=== PATIENT | male | born 1995 | race Caucasian/White ===

== ENCOUNTER 2016-09-28 20:19 | Emergency (ER) | payer BC ==
[~2016-09-28] VITALS: Ht 180.3 cm; Wt 113.5 kg
[2016-09-28] MEDS ORDERED: SODIUM CHLORIDE 0.9% 1000ML 1,000 ML IV STA (20:29)
[2016-09-28 20:37] VITALS: Ht 180.3 cm; Wt 113.5 kg
[2016-09-28 20:38] VITALS: O2SAT 98
[2016-09-28 20:55] LABS: BASO % 0.1 %; BASO ABS # 0.01 K/uL (0-0.2); COMPLETE YES; EOS % 0.2 %; HEMATOCRIT 44.1 % (42-52); IG% 0.1 %; LYMPH % 10.1 %; LYMPH ABS # 1.14 K/uL (1.2-3.4); MEAN CELL VOLUME 89.5 fL (80-100); MEAN CORPUSCULAR HEMOGLOBIN 32.9 pg (25-34); MEAN CORPUSCULAR HGB CONC 36.7 g/dl (32-36); MEAN PLATELET VOLUME 11.9 fL (7.4-10.4); MONO % 9.5 %; PLATELET COUNT 274 K/uL (130-400); RED BLOOD COUNT 4.93 M/uL (4.7-6.1); WHITE BLOOD COUNT 11.33 K/uL (4.8-10.8)
[2016-09-28] MEDS ORDERED: LORAZEPAM 1 MG TAB SL STA (20:55)
--- NOTE | 2016-09-28 20:55 | DIAGNOSTIC IMAGING REPORT ---
CHEST ONE VIEW PORTABLE HISTORY: EVALUATE WEAKNESS COMPARISON: None. FINDINGS: No pleural effusions. No pneumothorax. There are low lung volumes. Cardiac silhouette is borderline enlarged. The lungs are clear. IMPRESSION: Borderline enlargement of cardiac silhouette. This could be accentuated by the AP portable technique and low lung volumes. Electronically signed by: Dennys Blanc M.D. 09/28/2016 8:53 PM Dictated Date/Time: 09/28/2016 8:52 PM
[2016-09-28 21:05] LABS: INR 1.2 (0.9-1.1); PROTHROMBIN TIME (PATIENT) 12.4 SECONDS (9.0-12.0)
[2016-09-28 21:10] LABS: ALT/SGPT 27 U/L (12-78); BLOOD UREA NITROGEN 8 mg/dl (7-18); BUN/CREATININE RATIO 7.3 (10-20); CALCIUM 9.7 mg/dl (8.5-10.1); CARBON DIOXIDE 23 mmol/L (21-32); CHLORIDE 104 mmol/L (98-107); GLUCOSE 98 mg/dl (70-99); MAGNESIUM 2.4 mg/dl (1.8-2.4); POTASSIUM 3.2 mmol/L (3.5-5.1); SODIUM 139 mmol/L (136-145)
[2016-09-28 21:21] LABS: ALKALINE PHOSPHATASE 104 U/L (45-117); AST/SGOT 14 U/L (15-37); THYROID STIMULATING HORMONE 0.396 uIu/ml (0.300-4.500)
[2016-09-28 22:06] LABS: LYME DISEASE AB IGG NEG (NEG); LYME DISEASE AB IGM NEG (NEG)
[2016-09-28 22:52] LABS: URINE APPEARANCE CLEAR (CLEAR); URINE BILIRUBIN NEG (NEG); URINE COLOR YELLOW; URINE NITRITE NEG (NEG); URINE PH 5.5 (4.5-7.5); URINE SPECIFIC GRAVITY 1.001 (1.000-1.030); UROBILINOGEN NEG (NEG)
[2016-09-28 23:04] LABS: MANUAL MICROSCOPIC REQUIRED? NO; REVIEW REQ? NO
[2016-09-28] MEDS ORDERED: POTASSIUM CHLORIDE 10 MEQ TABCR PO STA (23:30)
[2016-09-28 23:46] VITALS: BP 156/80; PULSE 100; TEMP 36.9; O2SAT 98
--- NOTE | 2016-09-29 00:44 | EMERGENCY ROOM VISIT NOTE ---
History Report prepared by Stacey: David Mathias Under the Supervision of: Dr. Jorge James M.D. First contact with patient: 20:29 Chief Complaint: REFERRED BY DOCTOR Stated Complaint: REFERRED BY DOCTOR History of Present Illness The patient is a 21 year old male who presents to the Emergency Room with complaints of intermittent heart palpitations starting about a week and a half ago. He has noted his heart rate to be in the 110s-120s. He currently denies any pain. He was referred to the Emergency Room by [facility]. He does not have any history of similar symptoms. He denies any history of anxiety. He has a family history of hypertension. Pt denies recent travels, LOC, headache, fevers , chills, diaphoresis, visual changes, neck pain, chest pain, breathing difficulties, nausea, vomiting, abdominal pain, back pain, melena, hematochezia , urinary symptoms, numbness, weakness, lymphadenopathy, rash, or other complaints. He does not have any medical problems. Source of History: patient Onset: about a week and a half ago Position: chest Symptom Intensity: No pain currently Quality: other (heart palpitations) Timing: intermittent Review of Systems See HPI for pertinent positives and negatives. A total of ten systems were reviewed and were otherwise negative. Past Medical & Surgical Medical Problems: (1) No known problems Family History Hypertension Social History Smoking Status: Never Smoker Marital Status: single Occupation Status: [employer] student Current/Historical Medications No Active Prescriptions or Reported Meds Allergies Coded Allergies: No Known Allergies (Unverified , 09/28/16) Physical Exam Vital Signs Date Time Temp Pulse Resp B/P Pulse Ox O2 Delivery O2 Flow Rate FiO2 09/28/16 23:46 36.9 100 18 156/80 98 09/28/16 23:41 100 18 156/80 98 Room Air 09/28/16 22:39 102 18 142/80 99 Room Air 09/28/16 22:03 103 09/28/16 21:37 97 18 149/79 98 Room Air 09/28/16 20:38 98 Room Air 09/28/16 20:25 36.9 113 18 120/78 99 Room Air Physical Exam GENERAL: Awake, alert, anxious-appearing, in no distress HENT: Normocephalic, atraumatic. Oropharynx unremarkable. EYES: Normal conjunctiva. Sclera non-icteric. NECK: Supple. No nuchal rigidity. FROM. No JVD. RESPIRATORY: Clear to auscultation. CARDIAC: Tachycardic rate, normal rhythm. Extremities warm and well perfused. Pulses equal. ABDOMEN: Soft, non-distended. No tenderness to palpation. No rebound or guarding. No masses. RECTAL: Deferred. MUSCULOSKELETAL: Chest examination reveals no tenderness. The back is symmetrical on inspection without obvious abnormality. There is no CVA tenderness to palpation. No joint edema. LOWER EXTREMITIES: Calves are equal size bilaterally and non-tender. No edema. No discoloration. NEURO: Normal sensorium. No sensory or motor deficits noted. SKIN: No rash or jaundice noted. Medical Decision & Procedures ER Provider Diagnostic Interpretation: X-ray: Per my interpretation, radiologist review. CHEST ONE VIEW PORTABLE HISTORY: EVALUATE WEAKNESS COMPARISON: None. FINDINGS: No pleural effusions. No pneumothorax. There are low lung volumes. Cardiac silhouette is borderline enlarged. The lungs are clear. IMPRESSION: Borderline enlargement of cardiac silhouette. This could be accentuated by the AP portable technique and low lung volumes. Electronically signed by: Dennys Blanc M.D. 09/28/2016 8:53 PM Dictated Date/Time: 09/28/2016 8:52 PM Laboratory Results 09/28/16 20:40 Red Blood Count 4.93, Mean Corpuscular Volume 89.5, Mean Corpuscular Hemoglobin 32.9, Mean Corpuscular Hemoglobin Concent 36.7, Mean Platelet Volume 11.9, Neutrophils (%) (Auto) 80.0, Lymphocytes (%) (Auto) 10.1, Monocytes (%) (Auto) 9.5, Eosinophils (%) (Auto) 0.2, Basophils (%) (Auto) 0.1, Neutrophils # (Auto) 9.07, Lymphocytes # (Auto) 1.14, Monocytes # (Auto) 1.08, Eosinophils # (Auto) 0.02, Basophils # (Auto) 0.01 09/28/16 20:40 Test 09/28/16 20:40 09/28/16 22:37 White Blood Count 11.33 K/uL (4.8-10.8) Red Blood Count 4.93 M/uL (4.7-6.1) Hemoglobin 16.2 g/dL (14.0-18.0) Hematocrit 44.1 % (42-52) Mean Corpuscular Volume 89.5 fL (80-100) Mean Corpuscular Hemoglobin 32.9 pg (25-34) Mean Corpuscular Hemoglobin Concent 36.7 g/dl (32-36) Platelet Count 274 K/uL (130-400) Mean Platelet Volume 11.9 fL (7.4-10.4) Neutrophils (%) (Auto) 80.0 % Lymphocytes (%) (Auto) 10.1 % Monocytes (%) (Auto) 9.5 % Eosinophils (%) (Auto) 0.2 % Basophils (%) (Auto) 0.1 % Neutrophils # (Auto) 9.07 K/uL (1.4-6.5) Lymphocytes # (Auto) 1.14 K/uL (1.2-3.4) Monocytes # (Auto) 1.08 K/uL (0.11-0.59) Eosinophils # (Auto) 0.02 K/uL (0-0.5) Basophils # (Auto) 0.01 K/uL (0-0.2) RDW Standard Deviation 40.0 fL (36.4-46.3) RDW Coefficient of Variation 12.3 % (11.5-14.5) Immature Granulocyte % (Auto) 0.1 % Immature Granulocyte # (Auto) 0.01 K/uL (0.00-0.02) Prothrombin Time 12.4 SECONDS (9.0-12.0) Prothromb Time International Ratio 1.2 (0.9-1.1) Activated Partial Thromboplast Time 27.2 SECONDS (21.0-31.0) Partial Thromboplastin Ratio 1.0 Anion Gap 12.0 mmol/L (3-11) Est Creatinine Clear Calc Drug Dose 133.8 ml/min Estimated GFR () 109.1 Estimated GFR (Non- 94.1 BUN/Creatinine Ratio 7.3 (10-20) Calcium Level 9.7 mg/dl (8.5-10.1) Magnesium Level 2.4 mg/dl (1.8-2.4) Total Bilirubin 0.3 mg/dl (0.2-1) Direct Bilirubin < 0.1 mg/dl (0-0.2) Aspartate Amino Transf (AST/SGOT) 14 U/L (15-37) Alanine Aminotransferase (ALT/SGPT) 27 U/L (12-78) Alkaline Phosphatase 104 U/L (45-117) Total Creatine Kinase 101 U/L (39-308) Creatine Kinase MB < 0.5 ng/ml (0.5-3.6) Creatine Kinase MB Ratio (0-3.0) Troponin I < 0.015 ng/ml (0-0.045) Total Protein 8.5 gm/dl (6.4-8.2) Albumin 4.7 gm/dl (3.4-5.0) Thyroid Stimulating Hormone (TSH) 0.396 uIu/ml (0.300-4.500) Lyme Disease IgG Antibody NEG (NEG) Lyme Disease IgM Antibody NEG (NEG) Urine Color YELLOW Urine Appearance CLEAR (CLEAR) Urine pH 5.5 (4.5-7.5) Urine Specific Clyo 1.001 (1.000-1.030) Urine Protein NEG (NEG) Urine Glucose (UA) NEG (NEG) Urine Ketones 2+ (NEG) Urine Occult Blood NEG (NEG) Urine Nitrite NEG (NEG) Urine Bilirubin NEG (NEG) Urine Urobilinogen NEG (NEG) Urine Leukocyte Esterase NEG (NEG) Laboratory results reviewed by me Medications Administered Medications (Trade) Dose Ordered Sig/Cisco Route Start Time Stop Time Status Last Admin Dose Admin Sodium Chloride (Nss 1000ml) 1,000 ml @ 125 mls/hr Q8H STAT IV 09/28/16 20:29 09/29/16 04:28 09/28/16 20:29 125 MLS/HR Lorazepam (Ativan Tab) 1 mg NOW STAT SL 09/28/16 20:55 09/28/16 20:56 DC 09/28/16 20:55 1 MG Potassium Chloride (Klor-Con M10) 20 meq NOW STAT PO 09/28/16 23:30 09/28/16 23:31 DC 09/28/16 23:38 20 MEQ ECG Indication: palpitations Rate (beats per minute): 107 Rhythm: sinus tachycardia Findings: no acute ischemic change, no ectopy, other (Possible left atrial enlargement) Change: Prehospital EKG showed normal sinus rhythm, 80 beats per minute, no acute ischemic changes, no ectopy. ED Course 2028: The patient was evaluated in room A02. A complete history and physical exam was performed.Sodium Chloride 1000 ml @ 125 mls/hr IV 2054: Ativan Tab 1 mg SL 5: I reevaluated the patient who is feeling better. Discussed results and discharge instructions: He verbalized understanding and agreement. He had borderline elevated blood pressure and he will follow up with cardiology. The patient is ready for discharge. 2330: Potassium Chloride 20 meq PO Medical Decision Prior records/ancillary studies reviewed. Triage Nursing notes reviewed and agree them. The patient's history was concerning for palpitations and hypertension. Differential diagnosis: Etiologies such as electrolyte abnormality, cardiac dysrhythmia, thyroid dysfunction, pulmonary embolism, infection, gastrointestinal, hypertensive emergency, hypertension, as well as others were entertained. Physical examination: Benign as above. The patient is borderline tachycardic. He had borderline elevation of his blood pressure. He was anxious. ER treatment provided: Cardiac monitoring. Oral Ativan Normal saline hydration On reassessment the patient felt much better. Diagnostic interpretation by me: The electrocardiogram was negative for pathologic change. The labs revealed a subtle leukocytosis. Chemistry panel unremarkable except for mild hypokalemia. Magnesium normal. Cardiac markers normal. D-dimer negative. Imaging studies: Chest x-ray as above. Clinically the patient is doing very well. He has some borderline tachycardia which has improved as his anxiousness has decreased. The patient has had cold symptoms for a few days but the palpitations started for a week prior to that. He has a very slight elevation of his total white blood cell count, however I find no evidence of infection otherwise. I discussed conservative management. The patient will rest. He will not overexert himself. He will follow up with cardiology. He will call the office tomorrow.I gave my usual and customary discussion regarding this issue. His blood pressure is improved without intervention although it is still borderline. By the evaluation outlined above emergent etiologies such as significant electrolyte abnormality, cardiac dysrhythmia, thyroid dysfunction, pulmonary embolism, infection, as well as others were deemed relatively unlikely. The patient was informed about the findings as listed above. All questions were answered and he was pleased with the treatment. Return instructions were outlined and the patient was discharged in stable condition. Outpatient prescription management: None Referral: The patient was referred cardiology for a recheck of the current condition. The chart was completed utilizing [employer] voice recognition software. Grammatical errors, random word insertions, pronoun errors, and incomplete sentences are an occasional consequence of this system due to software limitations, ambient noise, and hardware issues. Any formal questions or concerns about the content, text, or information contained within the body of this dictation should be directly addressed to the physician for clarification. Impression Primary Impression: Palpitations Additional Impressions: HTN (hypertension) Hypokalemia Scribe Attestation The scribe's documentation has been prepared under my direction and personally reviewed by me in its entirety. I confirm that the note above accurately reflects all work, treatment, procedures, and medical decision making performed by me. Departure Information Dispostion Home / Self-Care Prescriptions No Active Prescriptions or Reported Meds Referrals Gordo Stephenson MD Forms HOME CARE DOCUMENTATION FORM, IMPORTANT VISIT INFORMATION, WORK / SCHOOL INSTRUCTIONS Patient Instructions My [facility] Additional Instructions PALPITATIONS(RAPID OR SKIPPING HEARTBEAT) INSTRUCTIONS: Rest and drink plenty of fluids as tolerated. Continue current medications. Resume normal activities once your symptoms resolve. Eat a heart healthy, low fat, low cholesterol diet. Return to the ER immediately for passing out, chest pain, abdominal pain, vomiting, fevers, difficulty breathing, worsening of your condition, or as needed. Follow up with cardiology as discussed for a recheck of your current condition. Call the clinic tomorrow morning. The number is listed below under Dr. Stephenson. Problem Qualifiers
== END 2016-09-28 23:46 | disposition home or self-care (01) ==
LOC: C.EDB 20:21 → C.EDA 23:46
DX: R00.2 Palpitations (principal); I10 Essential (primary) hypertension; E87.6 Hypokalemia; Z82.49 Family history of ischemic heart disease and other diseases of the circulatory system

== ENCOUNTER 2017-05-12 04:49 | Emergency (ER) | payer BC ==
[~2017-05-12] VITALS: Ht 177.8 cm; Wt 97.8 kg
[2017-05-12 04:52] VITALS: TEMP 36.4; Ht 177.8 cm; Wt 97.8 kg
[2017-05-12] MEDS ORDERED: RANITIDINE HCL 50 MG/100 ML D5W IV STA (04:59)
[2017-05-12] MEDS ORDERED: DEXAMETHASONE SOD INJ 10 MG/ML VIAL IV ONE (05:00)
--- NOTE | 2017-05-12 05:05 | EMERGENCY ROOM VISIT NOTE ---
History First contact with patient: 04:55 Chief Complaint: ALLERGIC REACTION Stated Complaint: ALLERGIC REACTION History of Present Illness The patient is a 22 year old male who presents to the Emergency Room with complaints of a itchy rash for the past several hours that is spreading and changing locations. No new foods soaps or detergents. Patient denies chest pain, dyspnea, throat tightness, facial swelling, feeling of impending doom. Review of Systems See HPI for pertinent positives & negatives. A total of 10 systems reviewed and were otherwise negative. Past Medical/Surgical History Medical Problems: (1) No known problems Family History Hypertension Social History Smoking Status: Never Smoker Drug Use: none Marital Status: single Occupation Status: [employer] student Current/Historical Medications No Active Prescriptions or Reported Meds Physical Exam Vital Signs Date Time Temp Pulse Resp B/P (MAP) Pulse Ox O2 Delivery O2 Flow Rate FiO2 05/12/17 04:52 36.4 86 18 184/106 97 Room Air Physical Exam VITALS: Vitals are noted on the nurse's note and reviewed by myself. Vital signs stable. GENERAL: Pleasant male, in no acute distress, nondiaphoretic, well-developed well-nourished. SKIN: Capillary reflex less than 2 seconds. Diffuse erythematous blanchable dermatitis of this changing locations throughout the body most consistent with hives HEENT: Normocephalic. PERRLA. EOMI. Nares patent. Mucous membranes moist. Neck is supple without nuchal rigidity. HEART: Regular rate and rhythm without murmurs gallops or rubs. LUNGS: Clear to auscultation bilaterally without wheezes, rales or rhonchi. No retractions or accessory muscle use. ABDOMEN: Positive bowel sounds x 4. Normal tympanic percussion. Soft, nontender, without masses or organomegaly. Street sign negative. No guarding or rebound tenderness. MUSCULOSKELETAL: No gross musculoskeletal defects. No pedal edema. NEURO: Patient was alert and oriented to person place and time. Normal sensation to light and sharp touch. no focal neurological deficits. Medical Decision & Procedures ED Course Prior records/ancillary studies reviewed. Triage Nursing notes reviewed. The patient's history was concerning for possible allergic reaction. Differential diagnosis: Etiologies such as allergic reaction, anaphylaxis, urticaria, Fields-Roverto syndrome, toxic epidermal necrolysis, erythema multiforme, cellulitis, as well as others were entertained. Physical examination: As above. ER treatment provided: Continuous cardiac monitoring Zantac 50 mg IV Decadron 10 mg IV On reassessment the patient felt better. Diagnostic interpretation by me: Deferred It appears the patient had an allergic reaction. The above treatment did well to reverse the symptoms. After prolonged monitoring and frequent reassessments the patient did very well and symptoms resolved. The patient was counseled on the spectrum of this disease process and told to avoid potential triggers. I gave my usual and customary discussion regarding this issue. By the evaluation outlined above emergent etiologies such as recurring anaphylaxis, anaphylatic shock, airway compromise, Fields-Roverto syndrome, toxic epidermal necrolysis, erythema multiforme, infectious etiologies, as well as others were deemed relatively unlikely. The pt informed about the findings as listed above. All questions were answered and pleased with the treatment. Return instructions were outlined and the patient was discharged in stable condition. Outpatient prescription management: EpiPen prednisone Referral: The patient was referred back to [facility] /primary care physician for follow-up in 2-3 days for a recheck of the current condition. or The patient was referred to Allergy/Immunology for further evaluation. Medical Decision As above Medication Reconcilliation Current Medication List: was personally reviewed by me Blood Pressure Screening Patient's blood pressure: Elevated blood pressure Blood pressure disposition: Elevated BP felt to be situational Impression Primary Impression: Urticaria Departure Information Dispostion Home / Self-Care Condition GOOD Prescriptions No Active Prescriptions or Reported Meds Referrals No Doctor, Assigned (PCP) Patient Instructions My [facility] Additional Instructions Epi-Pen: Use one injection as instructed for severe allergic reactions associated with shortness of breath, difficulty breathing, or throat or tongue swelling. If you use this injection call 911 or proceed immediately to the nearest Emergency Room. Prednisone 50mg: Once daily until the prescription is finished. It is best to take this earlier in the day as some patients note occasional difficulty falling asleep when taken in the late evening. Diphenhydramine(Benadryl) 25mg: use 25 to 50 mg every six hours for swelling, itching, or hives. This medication is sedating and will cause drowsiness. Avoid alcohol, operating machinery or dangerous equipment, working on ladders or roofs, DRIVING, or situations where being under the influence may be dangerous. Zantac 75: Take two pills twice a day along with Benadryl as needed for swelling , itching, or hives. Most people know this for its affect on the stomach, but it also acts similar to, but less potent than Benadryl for allergic reactions. Both the Benadryl and the Zantac are available [id number]. Continue current medications. Return to the emergency department for worsening of your rash, swelling of your face, lips, tongue, or throat, difficulty breathing, vomiting, or as needed. Follow-up with your primary care physician/health services in 2 to 3 days for a recheck of your current condition.
[2017-05-12] MEDS ORDERED: PRED50TA PO (05:07)
[2017-05-12] MEDS ORDERED: EPP3/2 IM (05:07)
[2017-05-12 05:24] VITALS: O2SAT 98
[2017-05-12 05:56] VITALS: BP 151/89; PULSE 68; O2SAT 97
[2017-05-12] MEDS ORDERED: BENADRYL HOME PACK 25 MG TAB PO ONE (06:15)
== END 2017-05-12 06:28 | disposition home or self-care (01) ==
LOC: C.EDB 04:49 → C.EDA 06:28
DX: L50.0 Allergic urticaria (principal); Z82.49 Family history of ischemic heart disease and other diseases of the circulatory system

== ENCOUNTER 2017-08-16 11:43 | Emergency (ER) | payer BC ==
[~2017-08-16] VITALS: Ht 180.3 cm; Wt 101.0 kg
[~2017-08-16 11:43] MED LIST: EPP3/2 IM
[2017-08-16 11:46] VITALS: Ht 180.3 cm; Wt 101.0 kg
[2017-08-16] MEDS ORDERED: ONDANSETRON INJ 2 MG/ML 2 ML VIAL IV STA (11:58)
[2017-08-16] MEDS ORDERED: SODIUM CHLORIDE 0.9% 1000ML 1,000 ML IV STA (11:58)
--- NOTE | 2017-08-16 12:32 | DIAGNOSTIC IMAGING REPORT ---
CHEST ONE VIEW PORTABLE HISTORY: 22 years-old Male Chest Pain acute atypical chest pain COMPARISON: Chest radiograph 09/28/2016 TECHNIQUE: Portable AP view of the chest FINDINGS: Cardiomediastinal and hilar silhouettes are within normal limits. No pneumothorax, pleural effusion, focal airspace consolidation or overt pulmonary edema. Bones of the chest are grossly intact. IMPRESSION: No acute cardiopulmonary process. The above report was generated using voice recognition software. It may contain grammatical, syntax or spelling errors. Electronically signed by: Erick Rodriguez M.D. 08/16/2017 12:31 PM Dictated Date/Time: 08/16/2017 12:30 PM
[2017-08-16 12:34] LABS: BASO % 0.2 %; BASO ABS # 0.01 K/uL (0-0.2); COMPLETE YES; EOS % 0.5 %; HEMATOCRIT 45.1 % (42-52); LYMPH % 21.7 %; LYMPH ABS # 1.44 K/uL (1.2-3.4); MEAN CELL VOLUME 91.3 fL (80-100); MEAN CORPUSCULAR HEMOGLOBIN 32.4 pg (25-34); MEAN CORPUSCULAR HGB CONC 35.5 g/dl (32-36); MEAN PLATELET VOLUME 12.3 fL (7.4-10.4); MONO % 6.5 %; NEUT % 71.1 %; PLATELET COUNT 273 K/uL (130-400); RED BLOOD COUNT 4.94 M/uL (4.7-6.1); WHITE BLOOD COUNT 6.65 K/uL (4.8-10.8)
[2017-08-16 12:43] LABS: BLOOD UREA NITROGEN 9 mg/dl (7-18); BUN/CREATININE RATIO 8.4 (10-20); CALCIUM 9.4 mg/dl (8.5-10.1); CARBON DIOXIDE 26 mmol/L (21-32); CHLORIDE 105 mmol/L (98-107); GLUCOSE 103 mg/dl (70-99); POTASSIUM 3.3 mmol/L (3.5-5.1); SODIUM 137 mmol/L (136-145)
[2017-08-16 12:54] LABS: THYROID STIMULATING HORMONE 0.717 uIu/ml (0.300-4.500)
[2017-08-16] MEDS ORDERED: POTASSIUM CHLORIDE 10 MEQ TABCR PO STA (13:36)
[2017-08-16 14:26] VITALS: BP 175/94; PULSE 88; TEMP 36.5; O2SAT 99
--- NOTE | 2017-08-16 17:00 | EMERGENCY ROOM VISIT NOTE ---
History Report prepared by Stacey: James Mantilla Under the Supervision of: Javed AyersO. First contact with patient: 11:49 Chief Complaint: IRREGULAR HEARTBEAT Stated Complaint: IRREGULAR HEARTBEAT History of Present Illness The patient is a 22 year old male who presents to the Emergency Room with complaints of persistent irregular heart rate beginning prior to arrival. The patient states that he was in class and was feeling that he was having an irregular heart beat. The patient states that this has happened in the past, though it doesn't usually last this long, and he states that he got a surge of adrenaline. The patient reports that he occasionally gets these episodes once a week to once a month. He notes that his hands felt tingly, and he almost blacked out and was light headed. Patient denies swelling of calves, recent trips other than two hour trips, history of immobilization or recent surgery, prior history of DVT, hemoptysis, and history of malignancy. Patient denies thyroid problems, diabetes, hypertension, hyperlipidemia, CAD, history of sudden at a young age, excessive alcohol consumption, and smoking. Pt denies headache, change in vision, fevers, chest pain, shortness of breath, nausea, vomiting, diarrhea, pain with urination, and melena. Source of History: patient Onset: prior to arrival Position: other (heart) Quality: other (irregular heart rate) Timing: other (persistent) Associated Symptoms: No chest pain Note: Associated symptoms: hands tingling and light headedness. Review of Systems See HPI for pertinent positives & negatives. A total of 10 systems reviewed and were otherwise negative. Past Medical & Surgical Medical Problems: (1) No known problems Family History Hypertension Social History Smoking Status: Never Smoker Drug Use: none Marital Status: single Occupation Status: [employer] student Current/Historical Medications Scheduled Epinephrine (Epipen 2-Cipriano), 1 PKT IM DIRECTED Allergies Coded Allergies: No Known Allergies (Unverified , 08/16/17) Physical Exam Vital Signs Date Time Temp Pulse Resp B/P (MAP) Pulse Ox O2 Delivery O2 Flow Rate FiO2 08/16/17 14:26 36.5 88 16 175/94 99 08/16/17 12:09 90 08/16/17 11:46 36.5 144 20 172/82 98 Room Air Physical Exam GENERAL: Sitting up in bed, anxious, no acute distress, non-toxic EYE EXAM: normal conjunctiva. PERRL and EOM's intact. OROPHARYNX: no exudate, no erythema, lips, buccal mucosa, and tongue normal and mucous membranes are moist NECK: supple, no nuchal rigidity, no adenopathy, non-tender LUNGS: Clear to auscultation. Normal chest wall mechanics HEART: no murmurs, S1 normal and S2 normal ABDOMEN: abdomen soft, non-tender, normo-active bowel sounds, no masses, no rebound or guarding. BACK: Back is symmetrical on inspection and there is no deformity, no midline tenderness, no CVA tenderness. SKIN: no rashes and no bruising UPPER EXTREMITIES: upper extremities are grossly normal. LOWER EXTREMITIES: Calves equal bilaterally. No pitting edema. NEURO EXAM: Normal sensorium, cranial nerves II-XII intact, normal speech, no weakness of arms, no weakness of legs. Gross sensation intact. Medical Decision & Procedures ER Provider Diagnostic Interpretation: Radiology results as stated below per my review and the radiologist's interpretation: CHEST ONE VIEW PORTABLE HISTORY: 22 years-old Male Chest Pain acute atypical chest pain COMPARISON: Chest radiograph 09/28/2016 TECHNIQUE: Portable AP view of the chest FINDINGS: Cardiomediastinal and hilar silhouettes are within normal limits. No pneumothorax, pleural effusion, focal airspace consolidation or overt pulmonary edema. Bones of the chest are grossly intact. IMPRESSION: No acute cardiopulmonary process. The above report was generated using voice recognition software. It may contain grammatical, syntax or spelling errors. Electronically signed by: Erick Rodriguez M.D. 08/16/2017 12:31 PM Dictated Date/Time: 08/16/2017 12:30 PM Laboratory Results 08/16/17 12:10 Red Blood Count 4.94, Mean Corpuscular Volume 91.3, Mean Corpuscular Hemoglobin 32.4, Mean Corpuscular Hemoglobin Concent 35.5, Mean Platelet Volume 12.3, Neutrophils (%) (Auto) 71.1, Lymphocytes (%) (Auto) 21.7, Monocytes (%) (Auto) 6.5, Eosinophils (%) (Auto) 0.5, Basophils (%) (Auto) 0.2, Neutrophils # (Auto) 4.74, Lymphocytes # (Auto) 1.44, Monocytes # (Auto) 0.43, Eosinophils # (Auto) 0.03, Basophils # (Auto) 0.01 08/16/17 12:10 Test 08/16/17 12:10 White Blood Count 6.65 K/uL (4.8-10.8) Red Blood Count 4.94 M/uL (4.7-6.1) Hemoglobin 16.0 g/dL (14.0-18.0) Hematocrit 45.1 % (42-52) Mean Corpuscular Volume 91.3 fL (80-100) Mean Corpuscular Hemoglobin 32.4 pg (25-34) Mean Corpuscular Hemoglobin Concent 35.5 g/dl (32-36) Platelet Count 273 K/uL (130-400) Mean Platelet Volume 12.3 fL (7.4-10.4) Neutrophils (%) (Auto) 71.1 % Lymphocytes (%) (Auto) 21.7 % Monocytes (%) (Auto) 6.5 % Eosinophils (%) (Auto) 0.5 % Basophils (%) (Auto) 0.2 % Neutrophils # (Auto) 4.74 K/uL (1.4-6.5) Lymphocytes # (Auto) 1.44 K/uL (1.2-3.4) Monocytes # (Auto) 0.43 K/uL (0.11-0.59) Eosinophils # (Auto) 0.03 K/uL (0-0.5) Basophils # (Auto) 0.01 K/uL (0-0.2) RDW Standard Deviation 41.2 fL (36.4-46.3) RDW Coefficient of Variation 12.3 % (11.5-14.5) Immature Granulocyte % (Auto) 0.0 % Immature Granulocyte # (Auto) 0.00 K/uL (0.00-0.02) D-Dimer 350 ug/L FEU (0-500) Anion Gap 6.0 mmol/L (3-11) Est Creatinine Clear Calc Drug Dose 125.3 ml/min Estimated GFR () 108.3 Estimated GFR (Non- 93.5 BUN/Creatinine Ratio 8.4 (10-20) Calcium Level 9.4 mg/dl (8.5-10.1) Total Creatine Kinase 123 U/L (39-308) Troponin I < 0.015 ng/ml (0-0.045) Thyroid Stimulating Hormone (TSH) 0.717 uIu/ml (0.300-4.500) Laboratory results per my review. Medications Administered Medications (Trade) Dose Ordered Sig/Cisco Route Start Time Stop Time Status Last Admin Dose Admin Sodium Chloride 1,000 ml @ 999 mls/hr Q1H1M STAT IV 08/16/17 11:58 08/16/17 12:58 DC 08/16/17 12:30 999 MLS/HR Potassium Chloride (Klor-Con M10) 40 meq NOW STAT PO 08/16/17 13:36 08/16/17 13:37 DC 08/16/17 13:56 40 MEQ ECG Indication: palpitations Rate (beats per minute): 115 Rhythm: sinus tachycardia Findings: T-wave inversion (lead 3) ED Course ED COURSE: Vital signs were reviewed and showed tachycardia and situational hypertension The patients medical record was reviewed The above diagnostic studies were performed and reviewed. ED treatments and interventions as stated above. 1149: The patient was evaluated in room B9. A complete history and physical examination was performed. 1158: Sodium Chloride 1000 ml @ 999 mls/hr IV 1247: I reevaluated the patient, and he is feeling 100% better back to his baseline 1324: Upon reevaluation, the patient is feeling better.I discussed my findings with the patient and he understands and agrees with the treatment plan. Based on the patients age, coexisting illnesses, exam and lab findings the decision to treat as an outpatient was made. The patient remained stable while under my care. The patient appeared well at the time of discharge. 1336: Potassium Chloride 40meq PO Medical Decision Differential diagnoses includes but is not limited to acute coronary syndrome, myocardial infarction, pericarditis, pulmonary embolus, aortic dissection, pneumonia, pneumothorax, musculoskeletal, shingles, esophageal. Patient is a 22-year-old male who presents to ER for palpitations. He notes that his heart was racing and felt slightly he is going to pass out for sure. At time. He has had this several times before in the past. This is been worked up with a Holter monitor without success. No sick be with exertion. He has no PE risk factors. No cardiac risk factors. EKG shows a sinus tachycardia. CBC along with BMP shows a mild hypokalemia. Potassium was ordered. Troponin was negative. TSH was normal. Troponin was not repeated as I do not believe this to be ischemic. D-dimer was negative. Patient was given fluids and his symptoms completely resolved. He was discharged follow-up with PCP. Do question anxiety but cannot certain. Discussed with Pt concerning signs and symptoms to watch out for. Pt was instructed to follow up with their PCP and discussed with the patient their option to return to the ED at anytime for persistent or worsening symptoms. The appropriate anticipatory guidance and out-patient management, including indications for return to the emergency department, were explained at length to the patient and understood. Medication Reconcilliation Current Medication List: was personally reviewed by me Blood Pressure Screening Patient's blood pressure: Elevated blood pressure Blood pressure disposition: Elevated BP felt to be situational Impression Primary Impression: Heart palpitations Additional Impression: Hypokalemia Scribe Attestation The scribe's documentation has been prepared under my direction and personally reviewed by me in its entirety. I confirm that the note above accurately reflects all work, treatment, procedures, and medical decision making performed by me. Departure Information Dispostion Home / Self-Care Referrals No Doctor, Assigned (PCP) Forms HOME CARE DOCUMENTATION FORM, IMPORTANT VISIT INFORMATION Patient Instructions ED Palpitations, My [facility] Additional Instructions Please follow up with your primary care doctor or if you are a student, [facility] with in the next 24 hours. Any worsening of your symptoms, please return to the ED immediately. This includes any fevers greater than 100.4, worsening pain, chest pain, shortness breath, passing out, persistent nausea, vomiting, unable to eat or drink, or any other concerning signs or symptoms from your standpoint. Problem Qualifiers
== END 2017-08-16 14:28 | disposition home or self-care (01) ==
LOC: C.EDB 11:45
DX: R00.2 Palpitations (principal); E87.6 Hypokalemia; R00.0 Tachycardia, unspecified; Z82.49 Family history of ischemic heart disease and other diseases of the circulatory system